=== PATIENT | female | born 1950 | race Two or more races ===

== ENCOUNTER 2020-12-13 15:21 | Outpatient (RCR) | payer MEDICARE, SELFPAY ==
[2020-12-13] MEDS: COVID-19 VACC, MRNA(PFIZER)/PF 30 MCG/0.3 ML SYRINGE IM (12:28)
[2021-01-03] MEDS: COVID-19 VACC, MRNA(PFIZER)/PF 30 MCG/0.3 ML SYRINGE IM (12:37)
== END 2021-03-14 23:59 ==
LOC: IMMUN 15:21
PROVIDERS: PCP Preventive Medicine Occupational Medicine; Referring Provider Family Medicine; Visit Provider Family Medicine
DX: Z23 Encounter for immunization (principal)
CPT/HCPCS: 0001A; 0002A; 91300